=== PATIENT | female | born 1960 | race Asian ===

== ENCOUNTER → 2017-05-20 | Outpatient (CLI) | payer BC ==
[~2017-05-20] MED LIST: OMNIPAQUE 350 MG/ML, 150 ML BOTTLE ONE
== END | disposition home or self-care (01) ==
LOC: CFH 15:24 → EDSTATUS 15:30
PROVIDERS: ATTEND Urology
DX: N20.0 Calculus of kidney (principal); N28.1 Cyst of kidney, acquired; K76.0 Fatty (change of) liver, not elsewhere classified; I70.0 Atherosclerosis of aorta; K59.00 Constipation, unspecified
CPT/HCPCS: 74178; Q9967